=== PATIENT | male | born 1955 | race Caucasian/White ===

== ENCOUNTER → 2016-10-31 | Outpatient (CLI) | payer OTHER ==
[~2016-10-31] MED LIST: CATHETER FLUSH 10 ML SYR IV PRN; IOHEXOL 350 MG/ML 100 ML (OMNIPAQUE 350) VIAL IV ONE; NS 100 ML (IVPB) BAG IV ONE
--- NOTE | 2016-10-31 17:01 | Diagnostic Imaging Report ---
PROCEDURE: CT chest with contrast only. TECHNIQUE: Multiple contiguous axial images were obtained through the chest after administration of intravenous contrast. INDICATION: COPD. Shortness of breath. 75 mL of Omnipaque 350 is administered intravenously. FINDINGS: There is no significantly enlarged lymph nodes in the mediastinum, in the rhonda or in the axilla. No mediastinal mass. The heart size is normal. No pericardial or pleural effusion. The thoracic aorta is normal in caliber. Atherosclerotic plaque is seen along the origin of the great vessels. The lungs demonstrate subpleural blebs in the lung apices and mild emphysema changes mostly in the apices. There is no significant consolidation, mass or suspicious nodule seen. Sections in the upper abdomen demonstrate no definite abnormality. The osseous structures demonstrate mild degenerative changes. IMPRESSION: Emphysema changes in the apices with subpleural blebs. Dictated by: Dictated on workstation # [id number]
== END ==
LOC: RAD 15:41
PROVIDERS: ATTEND Internal Medicine Critical Care Medicine
DX: J44.9 Chronic obstructive pulmonary disease, unspecified (principal); Z72.0 Tobacco use
CPT/HCPCS: 36415; 71260; 82565; 84520

== ENCOUNTER 2016-11-05 15:20 | Outpatient (CLI) | payer OTHER | END 2016-11-05 15:52 | disposition home or self-care (01) | LOC: SLEEP 15:20 | PROVIDERS: ATTEND Internal Medicine Critical Care Medicine | DX: J44.9 Chronic obstructive pulmonary disease, unspecified (principal); Z72.0 Tobacco use ==

== ENCOUNTER → 2016-11-07 | Outpatient (CLI) | payer OTHER ==
[~2016-11-07] MED LIST changes: -CATHETER FLUSH 10 ML SYR IV PRN; -IOHEXOL 350 MG/ML 100 ML (OMNIPAQUE 350) VIAL IV ONE; -NS 100 ML (IVPB) BAG IV ONE; +RT-ALBUTEROL SULF 2.5 MG/3 ML PRE-MIX VIAL IH ONE
== END ==
LOC: RT 13:41 → EDUNIT# 14:15
PROVIDERS: ATTEND Internal Medicine Critical Care Medicine
DX: J44.9 Chronic obstructive pulmonary disease, unspecified (principal)
CPT/HCPCS: 94060; 94640; 94726; 94729

== ENCOUNTER → 2017-02-18 | Outpatient (CLI) | payer OTHER | LOC: RT 12:40 | PROVIDERS: ATTEND Surgery | DX: Z02.71 Encounter for disability determination (principal) | CPT/HCPCS: 94060 ==

== ENCOUNTER 2017-04-18 09:00 | Outpatient (RCR) | payer OTHER | END 2017-04-20 | disposition home or self-care (01) | LOC: PULM 09:00 | PROVIDERS: ATTEND Nurse Practitioner Family | DX: R06.00 Dyspnea, unspecified; Z72.0 Tobacco use; J44.9 Chronic obstructive pulmonary disease, unspecified | CPT/HCPCS: 99211 ==

== ENCOUNTER 2017-05-02 09:00 | Outpatient (RCR) | payer OTHER | END 2017-07-22 | disposition home or self-care (01) | LOC: PULM 09:00 | PROVIDERS: ATTEND Nurse Practitioner Family | DX: J44.9 Chronic obstructive pulmonary disease, unspecified (principal); R06.00 Dyspnea, unspecified; Z72.0 Tobacco use ==

== ENCOUNTER → 2018-01-31 | Outpatient (CLI) | payer MEDICAID ==
[~2018-01-31] VITALS: Ht 172.7 cm; Wt 85.3 kg
[~2018-01-31] MED LIST changes: +CATHETER FLUSH 10 ML SYR IV PRN; -RT-ALBUTEROL SULF 2.5 MG/3 ML PRE-MIX VIAL IH ONE
[2018-01-31 08:43] VITALS: BP 164/84
[2018-01-31 08:47] VITALS: BP 170/79
[2018-01-31 08:55] VITALS: BP 203/88
--- NOTE | 2018-02-02 14:35 | STRESS TEST ---
DATE OF SERVICE: 01/31/2018 RESTING AND POST EXERCISE TECHNETIUM-99M TETROFOSMIN SPECT CT IMAGING ORDERING PHYSICIAN: DANIEL Zarate PRIMARY CARE PHYSICIAN: Petty Perez APRN CLINICAL DIAGNOSES: Chest pain, hypertension, shortness of breath. Baseline images were carried out after injection of 10.31 mCi of technetium-99m Tetrofosmin. Exercise was carried out on a treadmill. Marc protocol was employed. Heart rate response to exercise was normal. Blood pressure response to exercise was somewhat hypertensive. After he had attained 85% of maximum predicted heart rate, 30.3 mCi of technetium-99m Tetrofosmin were injected and the exercise was continued for another minute. Exercise was stopped on account of fatigue. There did not appear to be significant ST segment deviation with exercise. No significant arrhythmia was seen. The patient attained 97% of maximum predicted heart rate and 9.3 METS of workload. He exercised for a total of 7 minutes and 40 seconds in the Marc protocol. Review of images at rest and following stress does not indicate significant perfusion defects consistent with significant myocardial ischemia or infarction. Gated images show normal global left ventricular systolic function and normal regional wall motion. Left ventricular ejection fraction is calculated to be 70%. Left ventricular end diastolic volume is 53 mL. Attenuation of the diaphragmatic wall of the left ventricle is seen both at rest and following exercise. Wall motion is normal. CONCLUSIONS: 1. No evidence of any significant myocardial ischemia or infarction on this study. 2. Normal regional wall motion. 3. Normal global left ventricular systolic function with a calculated ejection fraction of 70%. Job ID: [id number] DocumentID: [id number] Dictated Date: 02/02/2018 12:10:51 Chrome [employer]er Date: 02/02/2018 14:34:50 Dictated By: ESTIVEN RÍOS MD, MA, FACP, FACC,
== END ==
LOC: CARD 06:48
PROVIDERS: ATTEND Nurse Practitioner Family
DX: I10 Essential (primary) hypertension (principal); R07.9 Chest pain, unspecified; E78.5 Hyperlipidemia, unspecified; R60.9 Edema, unspecified; J44.9 Chronic obstructive pulmonary disease, unspecified; Z72.0 Tobacco use
CPT/HCPCS: 78452; 93017; 93306